=== PATIENT | female | born 1950 | race Caucasian/White ===

== ENCOUNTER 2017-12-23 12:10 | Observation (INO) | payer BC, MEDICARE ==
[2017-12-23 13:00] LABS: #Eosinphils 0.3 thou/uL (0.0-0.7); #Lymphocytes 2.7 thou/uL (1.20-3.40); #Monocytes 0.7 thou/uL (0.11-0.59); %Basophils 0.5 % (0.0-1.0); %Eosinophils 4.3 % (0.0-10.0); %Lymphocytes 34.5 % (21.0-51.0); %Monocytes 9.1 % (0.0-10.0); %Neutrophils 51.6 % (42.0-75.0); Hemoglobin 13.1 g/dL (12.0-16.0); Mean Corpuscular HGB CONC 35.1 g/dL (32.0-36.0); Mean Corpuscular Hemoglobin 31.6 pg (27.0-31.0); Platelet Count 271 thou/uL (130-400); RBC Distribution Width 13.3 % (11.5-14.5); Red Blood Cell (RBC) Count 4.16 mill/uL (4.20-5.40); White Blood Cell (WBC) Count 7.8 thou/uL (4.8-10.8)
--- NOTE | 2017-12-23 13:04 | CT ---
NONCONTRAST CT OF THE BRAIN: INDICATION: Stroke protocol with left-sided numbness and left upper extremity numbness last seen normal at 0800 h ours. FINDINGS: No acute infarct, hemorrhage, or hydrocephalus is present. Septum pellucidum and third ventricle are midline. There is mild mucosal thickening of the right maxillary sinus. IMPRESSION: No acute intracranial abnormality. Findings called to Dr. Garcia at 12:20 p.m. on 12/23/17. CODE CR POS: DARCY
[2017-12-23] MEDS ORDERED: Aspirin 325 MG TAB ONE (13:10)
[2017-12-23 13:15] LABS: INR-International Normal Ratio 1.1; PTT 29.1 SEC (22.9-36.1); Prothrombin Time 14.1 SEC (12.0-14.7)
[2017-12-23 13:21] LABS: ALT (SGPT) 20 U/L (8-55); AST (SGOT) 18 U/L (5-34); Alkaline Phosphatase 62 U/L (40-150); Anion Gap 12 mmol/L (10-20); BUN (Urea Nitrogen) 13 mg/dL (9.8-20.1); Bilirubin, Total 0.6 mg/dL (0.2-1.2); Calc. Creatinine Clearance 0 mL/min (70-130); Calcium 9.5 mg/dL (7.8-10.44); Carbon Dioxide 23 mmol/L (23-31); Chloride 103 mmol/L (98-107); Estimated GFR-MDRD 73; Globulin 3.2 g/dL (2.4-3.5); Glucose 91 mg/dL (80-115); Potassium 4.1 mmol/L (3.5-5.1); Protein, Total 7.2 g/dL (6.0-8.3); Sodium 134 mmol/L (136-145)
[2017-12-23 13:25] LABS: CKMB 1.7 ng/mL (0-6.6); Troponin I Less than 0.010 ng/mL (< 0.028)
--- NOTE | 2017-12-23 13:28 | CT ---
CTA NECK AND INTRACRANIAL CTA: HISTORY: Stroke. FINDINGS: Contrast-enhanced CTA of the carotid arteries and intracranial CTA was performed. Two-D and 3D recon structed images performed on an independent 3D work station. The aortic arch is unremarkable. No evidence of abnormality seen in the aortic arch. The right brac hiocephalic, right and left common carotid arteries, as well as internal carotid arteries are all pat ent. No significant evidence of flow-limiting lesions or stenosis seen. Vertebrobasilar arteries ar e unremarkable. INTRACRANIAL CTA: The supraclinoid ICA bilaterally as well as the CHRIS, MCA, and DEICER REPAIRER vessels are patent. IMPRESSION: Normal carotid and intracranial CTA. Findings called to Dr. Garcia at 12:53 p.m. on 12/23/17. CODE CR POS: DARCY
[2017-12-23 13:39] LABS: Bilirubin Negative (Negative); Blood, Urine Trace (Negative); Clarity CLEAR (Clear); Glucose, Urine (Dipstick) Negative (Negative); Leukocyte Negative (Negative); Nitrite Negative (Negative); Protein, Urine (Dipstick) Negative (Neg-Trace); Specific Gravity, Urine 1.023 (1.002-1.036); Urobilinogen 0.2 mg/dL (0.2-1.0)
[2017-12-23 13:40] LABS: Bacteria/HPF None Seen HPF (None Seen); Hyaline Casts/LPF 0-3 HYALINE CAST LPF (0-3 Hyaline); RBC/HPF 0-3 HPF (0-3); Squamous Epithelial 0-3 HPF (0-3); WBC/HPF 0-3 HPF (0-3)
[2017-12-23] MEDS ORDERED: Nitroglycerin 0.4 MG TAB (25 Tab Bottle) SL PRN (13:49)
[2017-12-23] MEDS ORDERED: traMADol HCl 50 MG TAB PO PRN (13:49)
[2017-12-23] MEDS ORDERED: hydrALAZINE 20 MG/ML VIAL SLOW IVP PRN (13:49)
[2017-12-23] MEDS ORDERED: Diabetic Tussin 200 MG/10 ML UDCUP PO PRN (13:49)
[2017-12-23] MEDS ORDERED: Benzonatate 100 MG CAP PO PRN (13:49)
[2017-12-23] MEDS ORDERED: Senokot 8.6 MG TAB PO PRN (13:49)
[2017-12-23] MEDS ORDERED: Bisacodyl 5 MG TAB PO PRN (13:49)
[2017-12-23] MEDS ORDERED: Loratadine 10 MG TAB PO PRN (13:49)
[2017-12-23] MEDS ORDERED: Calcium Carbonate 500 MG ChewTAB PO PRN (13:49)
[2017-12-23] MEDS ORDERED: cloNIDine 0.1 MG TAB PO PRN (13:49)
[2017-12-23] MEDS ORDERED: Mag-Al 1200 mg/1200 mg/30 ML UDCUP PO PRN (13:49)
[2017-12-23] MEDS ORDERED: Acetaminophen 325 MG TAB PO PRN (13:49)
[2017-12-23] MEDS ORDERED: Ondansetron HCl/PF 4 MG/2 ML Vial IVP PRN (13:49)
--- NOTE | 2017-12-23 15:27 | HP ---
DATE OF ADMISSION: 12/23/2017 PRIMARY CARE PHYSICIAN: Narciso Peng M.D. CHIEF COMPLAINT: Numbness and tingling of left side of the face and left upper extremity. HISTORY OF PRESENT ILLNESS: Ms. Lizama is a very pleasant 67-year-old female with past medica l history of hypertension and CML, who presented to the emergency room with above-mentioned complaint . History is mainly obtained by the patient herself and electronic medical records have been reviewe d. Ms. Lizama reports that she had some dental work done day before yesterday which included getting a [place] n. She felt fine yesterday. This morning, while she was having her coffee in front of the TV, she f elt that there is something funny about the left side of her face, starting at the lower lip in the m iddle extending to her lower part of the jaw and upper left ear. She describes it as a tingling sens ation. She did not pay much attention to it, but later she started to have same sensation in the gloria d extending upwards in the left arm. This scared her enough. She checked her blood pressure at home it was reading very high with systolic in the 180s and diastolic in the 90s. Normally, her blood pr essure runs 120-130s systolic and 80s-90s diastolic. She is compliant with her medications. She barry led one of her friends who drove her to the emergency room. In the emergency room upon presentation, her blood pressure was 187/71. She underwent general examin ation to rule out acute CVA including a stat CT scan of the brain which was normal. She also underwe nt a CT angio of the brain, which was also unremarkable. Her blood work did not show any specific ab normality either. She is now being admitted to stroke floor to rule out CVA. PAST MEDICAL HISTORY: 1. CML, currently under care of [facility], stable on oral chemotherapy medications. 2. Hypertension. PAST SURGICAL HISTORY: 1. Hysterectomy. 2. Bartholin cyst removal. 3. Skin cancer removal on face. 4. Surgical History of appendectomy. 5. Tonsillectomy. PSYCHIATRIC HISTORY: No anxiety or depression. SOCIAL HISTORY: She is a former tobacco user. She has quit more than 10 years ago. She lives at [facility] alone. FAMILY HISTORY: No significant family history of any premature coronary artery disease or stroke. ALLERGIES: No known medication allergies. CURRENT MEDICATIONS: Sprycel 50 mg once daily, losartan 50 mg b.i.d., and vitamin D 2000 units 3 cap sules daily. REVIEW OF SYSTEMS: The following complete review of systems was negative, unless otherwise mentioned in the HPI or below: Constitutional: Weight loss or gain, ability to conduct usual activities. Skin: Rash, itching. Eyes: Double vision, pain. ENT/Mouth: Nose bleeding, neck stiffness, pain, tenderness. Cardiovascular: Palpitations, dyspnea on exertion, orthopnea. Respiratory: Shortness of breath, wheezing, cough, hemoptysis, fever or night sweats. Gastrointestinal: Poor appetite, abdominal pain, heartburn, nausea, vomiting, constipation, or diarrhea. Genitourinary: Urgency, frequency, dysuria, nocturia. Musculoskeletal: Pain, swelling. Neurologic/Psychiatric: Anxiety, depression. Allergy/Immunologic: Skin rash, bleeding tendency. LABORATORY DATA: CBC is unremarkable. Her WBC count is 7.8. PT, PTT and INR are normal. Serum ian mistries show sodium of 134, otherwise unremarkable. CK-MB and troponin within normal limits. Urina lysis showed trace blood, otherwise negative. CT scan of the brain by my review has no evidence to s uggest any acute hemorrhage, infarction or masses. CT angio of the havasupai of El and neck is norm al for the carotid and intracranial vessels. PHYSICAL EXAMINATION: VITAL SIGNS: Upon presentation, blood pressure 187/71, pulse of 69, respirations 19, temperature 98. 0, saturating 98% on room air. GENERAL: No acute distress, awake, alert, oriented x3, very pleasant. HEENT: Mucous membrane is moist and pink. No oropharyngeal exudate or erythema. No facial droop. Head is normocephalic, atraumatic. Pupils equal, reactive to light and accommodation. Extraocular m ovements are intact. NECK: Supple without any lymphadenopathy, JVD or bruit. CHEST: Clear to auscultation without any wheezing, rales or rhonchi. Rhythm is regular without any murmur, rubs or gallops. ABDOMEN: Soft, nontender, nondistended, positive bowel sounds. EXTREMITIES: Free of any cyanosis, clubbing, or edema. NEUROLOGIC: Largely unremarkable. Cranial nerves II-XII grossly intact. No muscle weakness. Stren gth is 5/5 in all 4 extremities. Sensation is intact. Hgndfl-zd-wprg testing intact. Gait is not c hecked, but she denies any imbalance. PSYCHIATRIC: Normal affect. SKIN: Free of any rashes or bruises. I feel warm and dry to touch. IMPRESSION AND PLAN: 1. Left-sided facial and left upper extremity paresthesias. At this time, the patient will be admit jacobo to rule out cerebrovascular accident/transient ischemic attack. She has been given aspirin in e emergency room, and we will repeat it tomorrow. The patient does report that NSAIDs interact with her chemotherapy medications, so we will be very cautious with that. Only use a small dose of aspiri n. Also check her lipid panel and provide better blood pressure control. We will also request consu ltation with stroke team as well as Neurology. She will be admitted to stroke floor and we will work her up with an MRI of the brain as well as carotid Doppler ultrasound, and transthoracic echocardiog mack. Frequent neuro checks will be instituted. 2. Uncontrolled hypertension, likely secondary to #1. We will restart her losartan and add p.r.n. a ntihypertensives as well. Avoid rapid and extreme lowering of the blood pressure at this time until the cerebrovascular accident is ruled out. 3. CML. Restart her home medications. 4. Code status: FULL CODE. Discussed with the patient. 5. Deep venous thrombosis and gastrointestinal prophylaxis. DISPOSITION: Ms. Lizama is being admitted to the hospital for TIA like symptoms. Estimated length of s jerald at this time is less than 2 midnights. Further management will depend upon her clinical course.
[2017-12-23] MEDS ORDERED: ISOVUE-370 76%-LOCM 1 ML ONE (16:31)
[2017-12-23 16:53] VITALS: BMI 34.6
[2017-12-23] MEDS: Famotidine 20 MG TAB PO SCH (20:48)
[2017-12-23] MEDS ORDERED: Prevnar 13-Val Conj/PF 0.5 ML SYRINGE IM ONE (21:00)
[2017-12-24 04:53] LABS: #Eosinphils 0.4 thou/uL (0.0-0.7); #Lymphocytes 2.4 thou/uL (1.20-3.40); #Monocytes 0.7 thou/uL (0.11-0.59); #Neutrophils 3.1 thou/uL (1.40-6.50); %Basophils 0.6 % (0.0-1.0); %Eosinophils 5.6 % (0.0-10.0); %Lymphocytes 36.1 % (21.0-51.0); %Monocytes 10.7 % (0.0-10.0); Hemoglobin 12.3 g/dL (12.0-16.0); Mean Corpuscular HGB CONC 34.5 g/dL (32.0-36.0); Mean Platelet Volume 7.3 fL (7.4-10.4); Platelet Count 271 thou/uL (130-400); RBC Distribution Width 13.6 % (11.5-14.5); Red Blood Cell (RBC) Count 3.98 mill/uL (4.20-5.40); White Blood Cell (WBC) Count 6.6 thou/uL (4.8-10.8)
[2017-12-24 05:16] LABS: Anion Gap 6 mmol/L (10-20); BUN (Urea Nitrogen) 15 mg/dL (9.8-20.1); Calc. Creatinine Clearance 110 mL/min (70-130); Calcium 9.5 mg/dL (7.8-10.44); Carbon Dioxide 28 mmol/L (23-31); Cardiac Risk 5.5 (Less than 4.5); Chloride 108 mmol/L (98-107); Cholesterol 199 mg/dl (< 200 Desired); Estimated GFR-MDRD 75; Glucose 106 mg/dL (80-115); HDL Cholesterol 36 mg/dL (>60 Neg Risk); LDL Cholesterol, Calculated 124 mg/dL; Potassium 4.1 mmol/L (3.5-5.1); Sodium 138 mmol/L (136-145); Triglycerides 193 mg/dL (Less than 150)
[2017-12-24] MEDS: Famotidine 20 MG TAB PO SCH (08:14)
[2017-12-24] MEDS ORDERED: DASATINIB 50 MG PO SCH (09:00)
[2017-12-24] MEDS ORDERED: LOSARTAN POTASSIUM PO SCH (09:00)
[2017-12-24] MEDS ORDERED: Enoxaparin Sodium 40 MG/0.4 ML SYRINGE SC SCH (09:00)
[2017-12-24] MEDS ORDERED: Losartan 25 MG TAB PO SCH (09:00)
[2017-12-24] MEDS ORDERED: Aspirin 325 mg Enteric Coated Tablet PO SCH (09:00)
[2017-12-24] MEDS ORDERED: Lorazepam 1 MG TAB PO SCH (11:45)
[2017-12-24 11:52] VITALS: BP 160/80; TEMP 98.5
--- NOTE | 2017-12-24 13:40 | MRI ---
NONCONTRAST ENHANCED MRI IMAGINGS OF BRAIN: HISTORY: TIA. Facial numbness. FINDINGS: Noncontrast-enhanced MRI images of the brain obtained. Images demonstrate no evidence of areas of diffusion restriction seen. The brain is unremarkable. No evidence of intracranial masses, hemorrhages, strokes, or contusions s een. Ventricles are of normal size. There is a moderate degree of right maxillary sinus mucosal thickening. IMPRESSION: Unremarkable noncontrast-enhanced MRI images of the brain. POS: DARCY
--- NOTE | 2017-12-24 15:39 | CON ---
DATE OF CONSULTATION: 12/24/2017 REFERRING PROVIDER: Pauline Morales MD REASON FOR CONSULTATION: Left facial and arm numbness and tingling. HISTORY OF PRESENT ILLNESS: Ms. Lizama is a pleasant 67-year-old female, who has been consult ed for evaluation of left-sided numbness and tingling. The patient reports that she had a dental pro cedure done about 2 days ago. On yesterday, she had a sudden onset of numbness and tingling in the l eft side of her face. A few minutes later, she developed numbness and tingling in the left arm and h and, which prompted her to seek urgent medical care. She decided to present to the [facility] Room for these symptoms. She did not have any headache, chest pain, palpitation, lightheadedness , dizziness, changes in speech, dysarthria, dysphagia, difficulty with balance. She states that she did measure her blood pressure at home, which was significantly elevated. She states that she has a history of blood pressure and supposed to be on losartan, but she only takes it when her blood pressu re goes up. Otherwise, she does not take the medication as prescribed. PAST MEDICAL HISTORY: Significant for hypertension; history of CML, currently on chemotherapy. PAST SURGICAL HISTORY: Significant for hysterectomy, Bartholin cyst removal, skin cancer removal on face, appendectomy and tonsillectomy. SOCIAL HISTORY: She denies smoking, alcohol use, or illicit drug use. She has a history of smoking in the past, but quit more than 10 years ago. FAMILY HISTORY: Noncontributory. CURRENT MEDICATIONS: Please review MAR. ALLERGIES: Include ALLOPURINOL, ERYTHROMYCIN, and PENICILLIN. REVIEW OF SYSTEMS: As mentioned above in HPI, otherwise negative. PHYSICAL EXAMINATION: VITAL SIGNS: Blood pressure of 160/80, pulse of 70, temperature of 98.5, respirations of 16, O2 sats of 96% on room air. GENERAL: Well-developed, well-nourished female, in no apparent distress. RESPIRATORY: Clear to auscultation bilaterally. CARDIOVASCULAR: Regular rate and rhythm. NEUROLOGIC: Mental status: The patient is awake, alert, oriented x3. Speech and language: Fluent speech. Cranial nerves: Pupils are 3 mm and reactive. Visual du are intact. Extraocular muscl es are intact. No nystagmus is noted. Face is symmetric. Tongue and uvula are midline. Motor exam showed normal tone and bulk with a 5/5 strength in both upper and lower extremities. Sensory: Sens ation is intact and symmetric. Deep tendon reflexes 2+ reflexes in both upper and lower extremities. Babinski: Plantar responses flexion bilaterally. Coordination intact to nmbayd-[id number]-zrpztu and fi nger tapping bilaterally. Gait and Romberg are normal. LABORATORY DATA: Reviewed, which included CBC, coag panel, CMP, urinalysis, which is significant for total cholesterol of 199, LDL of 124, HDL of 36, triglycerides of 193, otherwise unremarkable. IMAGING STUDIES: MRI brain without contrast was reviewed, which showed no acute intracranial abnorma lity. CT angiogram of the head and neck were reviewed, which showed no intracranial or extracranial vascular abnormality. Echocardiogram results were reviewed, which showed EF of 60% to 65%, otherwise which was essentially normal. IMPRESSION: 1. Hypertensive urgency. 2. Left-sided facial and arm numbness, likely due to hypertensive urgency. PLAN: Ms. Lizama is a pleasant 67-year-old female, who presented with the left-sided facial a nd arm numbness. This was in the context of severely elevated blood pressure. I had a long discussi on with the patient and explained that she needs to be compliant with her medication. She needs to t kirit her blood pressure medication on a daily basis. She needs to measure her blood pressure at least twice a day and make a diary of that, so she can present that to her primary care physician who can adjust her antihypertensive medication. I have reviewed her MRI brain and CT angiogram, which are es sentially normal. At this time, there is no further neurological workup needed from my standpoint. The patient can be started on aspirin 81 mg daily for secondary stroke prevention. The patient is ok ay to be discharged to home. Thank you for consultation.
--- NOTE | 2017-12-24 16:13 | DIS ---
DATE OF ADMISSION: 12/23/2017 DATE OF DISCHARGE: 12/24/2017 CONDITION AT THE TIME OF DISCHARGE: Stable and improved. DISCHARGE DIAGNOSES: 1. Facial paresthesias, transient ischemic attack/cerebrovascular accident, ruled out. 2. History of CML. 3. Hypertension. PRIMARY CARE PHYSICIAN: Narciso Peng M.D. DISCHARGE MEDICATIONS: Remained the same. Admission medications include Cozaar 50 mg p.o. b.i.d. an d Sprycel 50 mg daily for CML. NEW MEDICATIONS: Fish oil 1000 mg daily. CONSULTATIONS IN HOUSE: Neurology, Dr. Coby Sanchez. PROCEDURES DONE IN THE HOSPITAL: 1. CT angiogram of the head and neck, which is unremarkable. 2. CT scan of the brain, which is unremarkable. 3. Transthoracic echocardiogram, which showed preserved ejection fraction of 60% to 65% with grade 2 /3 diastolic dysfunction. 4. MRI of the brain, which is negative for any acute cerebrovascular accident, mass lesions, etc. HISTORY OF PRESENT ILLNESS: Ms. Lizama is a very pleasant 67-year-old female with known history of CML and hypertension, who came into the emergency room after she had some symptoms of facial paresthesias and left arm paresthesias. She was admitted in stroke workup rule out. She was hemodynamically sta ble. Please see admission history and physical dictated by myself for further detail. HOSPITAL COURSE: The patient had an initial CT angiogram of the head and neck as well as brain CT sc an done in the ER, which was negative. She was admitted to stroke floor and was started on aspirin. She underwent an MRI of the brain and echocardiogram, which were both normal. She was evaluated by Dr. Sanchez, who agreed that this likely is not a CVA or a TIA. At this time, she is being discharged b ack to her primary care physician in a stable condition. Because of her being on the oral chemothera py for CML, at this time, she is reluctant to take any statin or aspirin. I have started her on fish oil as the triglyceride level was elevated to 193. Her total cholesterol is 199 and LDL is 124. Di et and lifestyle modifications are recommended and she is very receptive to this. She was seen and examined prior to discharge. PHYSICAL EXAMINATION: VITAL SIGNS: Temperature 98.5, pulse of 70, respirations 16, saturating 96% on room air and blood pr essure 160/80. GENERAL: No acute distress. Awake, alert and oriented x3. Her symptoms have completely resolved. CHEST: Clear to auscultation bilaterally without any wheezing, rales or rhonchi. HEART: Rhythm is regular without any murmur, rubs or gallops. NEUROLOGIC: No deficits. LABORATORY EXAMINATION: CBC, unremarkable. Serum chemistries, unremarkable. Urinalysis shows trace blood, otherwise unremarkable. DISCHARGE FOLLOWUP: She is instructed to follow up at [facility] for her CML as previously and also follow up with the primary care physician in 7-10 days.
[2017-12-24] MEDS ORDERED: Fish Oil 1,000 MG CAP PO SCH (21:00)
[2017-12-24] MEDS ORDERED: Atorvastatin Calcium 10 MG TAB PO SCH (21:00)
== END 2017-12-24 15:02 | disposition home or self-care (01) ==
LOC: ERS 12:10 → 2SE 13:25
PROVIDERS: ADMIT Internal Medicine; ATTEND Internal Medicine
DX: R20.2 Paresthesia of skin (principal); I16.0 Hypertensive urgency; C92.10 Chronic myeloid leukemia, BCR/ABL-positive, not having achieved remission; I10 Essential (primary) hypertension; Z87.891 Personal history of nicotine dependence; Z79.899 Other long term (current) drug therapy; Z88.0 Allergy status to penicillin; Z88.8 Allergy status to other drugs, medicaments and biological substances
CPT/HCPCS: 36415; 36416; 70450; 70496; 70498; 70551; 80048; 80053; 80061; 81003; 81015; 82553; 84484; 85025; 85610; 85730; 93005; 93306; 94760; 96372; G0378; J1650